=== PATIENT | female | born 1970 | race Hispanic/Latino ===

== ENCOUNTER 2018-07-19 16:26 | Inpatient (IN) | payer SELFPAY ==
[~2018-07-19] VITALS: Ht 165.1 cm; Wt 96.8 kg
[2018-07-19 17:32] LABS: BASOPHILS % (AUTO) 1.4 % (0.0-5.0); EOSINOPHILS % (AUTO) 0.3 % (0.0-8.0); LYMPHOCYTES % (AUTO) 10.2 % (21.0-51.0); MEAN CORPUSCULAR HEMOGLOBIN 29.8 pg (27.0-33.0); MEAN CORPUSCULAR HGB CONC 33.4 g/dL (32.0-36.0); MEAN CORPUSCULAR VOLUME 89.1 fL (79-99); MONOCYTES % (AUTO) 6.6 % (3.0-13.0); NEUTROPHILS % (AUTO) 81.5 % (40.0-77.0); PLATELET COUNT (AUTO) 362 K/uL (130-400); RED CELL DISTRIBUTION WIDTH 12.6 % (11.0-15.5); WHITE BLOOD COUNT (AUTO) 22.4 K/uL (4.8-10.8)
[2018-07-19] MEDS ORDERED: MORPHINE SULFATE 4 MG/1ML SYG ONE (17:39)
[2018-07-19] MEDS ORDERED: ONDANSETRON HCL 4 MG/2 ML VIAL ONE (17:39)
[2018-07-19 17:41] LABS: INR 0.93 (0.85-1.15); PARTIAL THROMBOPLASTIN TIME 33.4 SEC (26.3-35.5); PROTHROMBIN TIME 9.8 SEC (9.6-11.6)
[2018-07-19] MEDS ORDERED: INSULIN HUMULIN R 100 UNIT/ML 3ML ONE (18:04)
[2018-07-19 18:11] LABS: CARBON DIOXIDE 26 mmol/L (21-32); CHLORIDE 97 mmol/L (101-111); CREATININE 0.7 mg/dL (0.5-1.5); GLOMERULAR FILTR. RATE CALC 95 mL/min (>60); GLUCOSE,RANDOM 399 mg/dL (70-105); POTASSIUM 4.3 mmol/L (3.5-5.1); SODIUM SERUM 132 mmol/L (136-145); UREA NITROGEN, BLOOD 10 mg/dL (7-18)
[2018-07-19 18:19] LABS: ALANINE AMINOTRANSFERASE 14 U/L (12-78); ALBUMIN 2.3 g/dL (3.5-5.0); ASPARTATE AMINOTRANSFERASE 22 U/L (10-37); BILIRUBIN,TOTAL 0.4 mg/dL (0.2-1.0); CREATINE KINASE, TOTAL 66 U/L (21-232); MYOGLOBIN 24 ng/mL (10-92); TOTAL PROTEIN, SERUM 7.5 g/dL (6.0-8.3); TROPONIN I < 0.04 ng/mL (0.00-0.06)
[2018-07-19] MEDS ORDERED: ONDANSETRON HCL 4 MG/2 ML VIAL IV PRN (18:45)
[2018-07-19] MEDS ORDERED: ZOSYN 3.375GM+NS 50ML 50 ML IV ONE (18:46)
[2018-07-19] MEDS ORDERED: LIDOCAINE HCL 1% 20 ML VIAL ONE (18:59)
[2018-07-19] MEDS ORDERED: VANCOMYCIN PROTOCOL PER PHARMACY IV PRN (19:00)
[2018-07-19] MEDS ORDERED: DEXTROSE 50%-WATER 50 ML DISP.SYRIN IV PRN (19:00)
[2018-07-19] MEDS ORDERED: GLUCAGON 1MG KIT 1 MG ML IM PRN (19:00)
[2018-07-19] MEDS ORDERED: HYDRALAZINE HCL 20 MG/ML VIAL IV PRN (20:15)
[2018-07-19] MEDS ORDERED: VANCOMYCIN 1GM+NS 250ML 250 ML IV ONE (20:22)
[2018-07-19] MEDS: VANCOMYCIN 1GM+NS 250ML 250 ML IV SCH (21:00)
[2018-07-19] MEDS: INSULIN HUMULIN R 100 UNIT/ML 3ML SQ SCH (21:00)
[2018-07-19] MEDS ORDERED: ACETAMINOPHEN EXTRA STRENGTH 500 MG TABLET ONE (21:28)
[2018-07-19 21:50] VITALS: BP 150/71
--- NOTE | 2018-07-19 22:00 | NUR ---
ADMIT PT ADMITTED TO ROOM 328,AAOX3. NO COMPLAINTS OF PAINS AT THIS TIME. DRESSING TO RT UPPER BACK DRY AND INTACT. V/S MONITORED BY PCP, TEMPERATURE AND HR ELEVATED AT 100.4 AND 114 BPM. PT ALREADY MEDICATED WITH TYLENOL IN ER. KEPT ROOM TEMPERATURE COOL. PROVIDED THIN BLANKET TO USE AT THIS TIME. ADMISSION CARE DONE. ADMISSION DATA BASE COMPLETED. STARTED PT ON IVF OF NS REGULATED AT 100CC/HR VIA PIV G20 TO RAC. STARTED ON PEPCID PO, TOLERATED WELL. ORIENTED TO ROOM AND UNIT. CALL LIGHT WITHIN REACH. IN FOR MORE CARE AND MANAGEMENT. Addendum: 07/19/18 at 2301 by OBDULIO LYNN RN RN Amended: Links added.
[2018-07-19] MEDS: FAMOTIDINE 20MG TAB 20 MG TAB PO SCH (22:05)
[2018-07-19] MEDS: SODIUM CHLORIDE 0.9% 1000ML 1,000 ML IV SCH (22:05)
[2018-07-19] MEDS ORDERED: METF-444 PO (22:15)
[2018-07-19 22:41] LABS: APPEARANCE,URINE Clear (CLEAR); BILIRUBIN,URINE Negative (NEGATIVE); COLOR,URINE Yellow (YELLOW); GLUCOSE, URINE (UA) >=1000 mg/dL (NEGATIVE); KETONES,URINE >=80 mg/dL (NEGATIVE); LEUKOCYTE ESTERASE ,URINE Negative (NEGATIVE); NITRATE,URINE Negative (NEGATIVE); OCCULT BLOOD,URINE Small (NEGATIVE); PH,URINE 5.5 (5.0-8.0); PROTEIN,URINE POS 2+ mg/dL (NEGATIVE)
[2018-07-19 22:55] LABS: BACTERIA,URINE Rare /HPF (None Seen); SQUAMOUS EPITHELIAL CELL,UR Rare /HPF (0-2); YEAST,URINE BUDDING None Seen /HPF (None Seen)
[2018-07-19 23:30] VITALS: BP 126/76
[2018-07-20] MEDS: ACETAMINOPHEN-CODEINE 300/30MG TAB PO PRN ×3 (01:35→20:39)
--- NOTE | 2018-07-20 02:00 | NUR ---
ROUNDS PT RESTING WELL, FAIRLY ASLEEP WITH RESPIRATIONS EVEN AND UNLABORED. NO NOTED DISTRESS. KEPT UNDISTURBED FOR NOW. WILL CONTINUE TO MONITOR. CALL LIGHT WITHIN REACH.
[2018-07-20] MEDS: ZOSYN 3.375GM+NS 50ML 50 ML IV SCH ×3 (03:04→18:12)
[2018-07-20 04:00] VITALS: BP 129/71
[2018-07-20] MEDS: SODIUM CHLORIDE 0.9% 1000ML 1,000 ML IV SCH ×2 (04:03→14:57)
[2018-07-20] MEDS: VANCOMYCIN 1GM+NS 250ML 250 ML IV SCH ×2 (04:40→13:30)
--- NOTE | 2018-07-20 04:40 | NUR ---
MEDS AWAKENED PT FOR DUE MEDS. INSERTED SECOND PIV FOR IV ABX, G20 RFA, PT TOLERATED INSERTION WELL. IV ANTIBIOTICS INFUSED. KEPT RESTED AND COMFORTABLE. CALL LIGHT WITHIN REACH. FOR MORE CARE.
[2018-07-20 05:10] LABS: HEMATOCRIT 42.3 % (36-48); MEAN CORPUSCULAR HEMOGLOBIN 30.8 pg (27.0-33.0); MEAN CORPUSCULAR HGB CONC 34.7 g/dL (32.0-36.0); MEAN CORPUSCULAR VOLUME 88.8 fL (79-99); PLATELET COUNT (AUTO) 336 K/uL (130-400); RED BLOOD CELL COUNT(AUTO) 4.76 MIL/uL (4.00-5.50); RED CELL DISTRIBUTION WIDTH 12.7 % (11.0-15.5); WHITE BLOOD COUNT (AUTO) 26.1 K/uL (4.8-10.8)
[2018-07-20 05:17] LABS: CREATININE 0.5 mg/dL (0.5-1.5); POTASSIUM 3.4 mmol/L (3.5-5.1)
[2018-07-20] MEDS: INSULIN HUMULIN R 100 UNIT/ML 3ML SQ SCH ×4 (06:30→20:35)
[2018-07-20 08:00] VITALS: BP 144/67
[2018-07-20] MEDS: FAMOTIDINE 20MG TAB 20 MG TAB PO SCH ×2 (08:57→20:28)
[2018-07-20] MEDS: ENOXAPARIN SODIUM 30 MG/0.3 ML SQ SCH (08:58)
--- NOTE | 2018-07-20 11:27 | NUR ---
RD Notification Patient partially awake upon visit. Patient reports was able to eat breakfast this AM. Patient with nausea and pain at time of visit. RD with pending diet education. Patient LBM 07/19/18. Patient monitored labs: Na 132, K 3.4, Cl 99, BUN 6, CO2 20, Glu 252, Alb 2.3. RD to continue to monitor. Please notify RD as nutritional concerns arise. Thank you. Addendum: 07/20/18 at [address] RD Amended: Links added.
[2018-07-20 12:00] VITALS: BP 136/79
--- NOTE | 2018-07-20 14:00 | NUR ---
DR. CONWAY HERE TO SEE PATIENT. COLLECTED RIGHT UPPER POSTERIOR WOUND CULTURE AND SENT TO LAB. CLEANED WOUND WITH NORMAL SALINE PENDING PEROXIDE TO ARRIVE . NOTICED LARGE AMOUNT PRULUENT DISCHARGE. COVERED WITH 4X4 AND SECURED WITH TAPE.
[2018-07-20 16:00] VITALS: BP 157/74
--- NOTE | 2018-07-20 16:11 | NUR ---
DCP CM met with pt discussed dc plans. Pt is independent prior to admission, lives at home with spouse. Denies any equipments/services. Pt is a selfpay currently does not see a pcp, given [facility], [facility] assisting. DC plan to home once stable. CM to cont to follow up. Addendum: 07/20/18 at 1613 by YAMILET CONTRERAS LVN CM Amended: Links added.
[2018-07-20 19:30] VITALS: BP 144/67
[2018-07-20] MEDS: METOPROLOL TARTRATE 25 MG TAB PO SCH (20:28)
--- NOTE | 2018-07-20 20:30 | NUR ---
MEDS DUE MEDS ADMINISTERED AND TYLENOL #3 GIVEN FOR PAIN. TOLERATED WELL. DRESSING CHANGE DONE. REMOVED DRESSING AND PACKING. TRIED TO SQUEEZE OUT PUS FROM WOUND. FLUSHED WOUND WITH PEROXIDE. RE-PACKED WITH NU-GAUZE, COVERED WITH 4X4 AND ABD PAD THEN SECURED WITH TAPE. CHANGED WET GOWN AND LINEN. POSITIONED COMFORTABLY IN BED. CALL LIGHT WITHIN REACH. WILL RE-ASSESS PT.
[2018-07-20] MEDS ORDERED: INSULIN GLARGINE 100 UNITS/ML 10 ML VIAL SQ SCH (21:00)
--- NOTE | 2018-07-20 21:00 | NUR ---
[facility] FAXED [facility] THROUGH RESULTS TO RX. CALLED PHARMACIST AND STATED WILL DO RE-DOSING TONIGHT.
[2018-07-20] MEDS ORDERED: VANCOMYCIN 2 GM in SODIUM CHLORIDE 0.9% 500ML 500 ML IV ONE (22:00)
[2018-07-20 23:30] VITALS: BP 129/62
[2018-07-21] MEDS: SODIUM CHLORIDE 0.9% 1000ML 1,000 ML IV SCH ×3 (00:04→20:57)
--- NOTE | 2018-07-21 02:00 | NUR ---
ROUNDS PT FAIRLY ASLEEP WITH RESPIRATIONS EVEN AND UNLABORED. NO DISTRESS NOTED. IV ANTIBIOTICS INFUSED. KEPT RESTED. CALL LIGHT WITHIN REACH. WILL MONITOR PT.
[2018-07-21] MEDS: ZOSYN 3.375GM+NS 50ML 50 ML IV SCH ×3 (02:15→18:12)
[2018-07-21 03:30] VITALS: BP 136/65
[2018-07-21] MEDS: VANCOMYCIN 1GM+NS 250ML 250 ML IV SCH ×2 (04:25→12:06)
[2018-07-21] MEDS: ACETAMINOPHEN-CODEINE 300/30MG TAB PO PRN ×3 (04:31→23:25)
--- NOTE | 2018-07-21 04:31 | NUR ---
PAIN PT CLAIMS OF FEELING FEVERISH. RE-CHECKED TEMPERATURE=99.1. PT CLAIMS OF PAINS ON THE RT UPPER BACK AREA. MEDICATED WITH TYLENOL #3. KEPT COMFORTABLE IN BED. WILL RE-ASSESS PT.
[2018-07-21 04:35] LABS: HEMATOCRIT 40.9 % (36-48); MEAN CORPUSCULAR HEMOGLOBIN 30.2 pg (27.0-33.0); MEAN CORPUSCULAR HGB CONC 33.9 g/dL (32.0-36.0); MEAN CORPUSCULAR VOLUME 89.1 fL (79-99); NUCLEATED RED BLOOD CELLS 0.1 % (0.0-0.19); PLATELET COUNT (AUTO) 398 K/uL (130-400); RED BLOOD CELL COUNT(AUTO) 4.59 MIL/uL (4.00-5.50); RED CELL DISTRIBUTION WIDTH 12.5 % (11.0-15.5); WHITE BLOOD COUNT (AUTO) 25.3 K/uL (4.8-10.8)
[2018-07-21 04:41] LABS: CREATININE 0.5 mg/dL (0.5-1.5); POTASSIUM 3.2 mmol/L (3.5-5.1)
[2018-07-21] MEDS: INSULIN HUMULIN R 100 UNIT/ML 3ML SQ SCH ×4 (06:30→20:44)
[2018-07-21 08:00] VITALS: BP 128/72
--- NOTE | 2018-07-21 08:00 | NUR ---
RIGHT UPPER SCAPULA WOUND CLEANED WITH NORMAL. FLUSHED WITH PEROXIDE AND PACKED WITH NUGAUZE, APPLIED 4X4 AND ABD PAD AND SECURED WITH MEDIOPORE TAPE. LARGE AMOUNT OF PURULENT DRAINAGE NOTED. PATIENT TOLERATED PROCEDURE WELL.
[2018-07-21] MEDS: POTASSIUM CHLORIDE 20 MEQ ERTAB PO SCH (08:41)
[2018-07-21] MEDS: ENOXAPARIN SODIUM 30 MG/0.3 ML SQ SCH (08:41)
[2018-07-21] MEDS: FAMOTIDINE 20MG TAB 20 MG TAB PO SCH ×2 (08:41→20:41)
[2018-07-21] MEDS: METOPROLOL TARTRATE 25 MG TAB PO SCH ×2 (08:41→20:41)
[2018-07-21 12:01] VITALS: BP 120/65
[2018-07-21 16:00] VITALS: BP 150/77
[2018-07-21] MEDS ORDERED: LIDOCAINE HCL-MPF 1% 2ML VIAL IVP PRN (16:45)
[2018-07-21] MEDS ORDERED: POTASSIUM CHLORIDE 10% ELIXIR 20 MEQ/15 ML UDCUP PO PRN (16:45)
[2018-07-21] MEDS ORDERED: POTASSIUM CHLORIDE 20MEQ/100ML 100 ML IV PRN (16:45)
[2018-07-21] MEDS: POTASSIUM CHLORIDE 20 MEQ ERTAB PO PRN ×2 (18:41→22:19)
--- NOTE | 2018-07-21 20:00 | NUR ---
WALK PT WALKING AROUND THE FLOOR AT THIS TIME. NO DISTRESS NOTED.
[2018-07-21 20:26] VITALS: BP 132/70
--- NOTE | 2018-07-21 20:36 | NUR ---
MEDS VANCO THROUGH RESULTS IN, FAXED TO RX AND CALLED PHARMACIST TO INFORM OF LEVEL. PHARMACIST STATED WILL LOOK INTO RESULTS AND DO DOSING OF MED. DUE MEDS ADMINISTERED, TOLERATED WELL. KEPT RESTED AND COMFORTABLE IN BED. CALL LIGHT WITHIN REACH.
[2018-07-21] MEDS: INSULIN GLARGINE 100 UNITS/ML 10 ML VIAL SQ SCH (20:43)
[2018-07-21] MEDS ORDERED: COMPOUND IV REFRIGERATED 1 EACH IVSOLN MISC PRN (22:15)
[2018-07-21] MEDS: VANCOMYCIN 1.5 GM in SODIUM CHLORIDE 0.9% 250 ML IV SCH (22:19)
--- NOTE | 2018-07-21 23:00 | NUR ---
WOUND PT REQUESTED TO SHOWER, TOLERATED ACTIVITY WELL. PT'S FAMILY AT BEDSIDE AND ATTENDED TO PT'S NEEDS AT THIS TIME. PT'S WOUND DRESSING DONE AFTER PT'S SHOWER. PICTURE OF WOUND TAKE, PLACED IN CHART. REMOVED PACKING AND SQUEEZED OUT PUS FROM SX WOUND. FLUSHED WOUND WITH HYDROGEN PYROXIDE. PACKING OD NU-GAUZE DONE THEN COVERED WITH 4X4 AND ABD PAD THEN SECURED WITH TAPE. PT REQUESTED FOR PAIN MED AFTER DRESSING. MEDICATED WITH TYLENOL #3 PO. KEPT COMFORTABLE IN BED. WILL RE-ASSESS PT.
[2018-07-21 23:51] VITALS: BP 141/72
[2018-07-22] MEDS: POTASSIUM CHLORIDE 20 MEQ ERTAB PO PRN (01:30)
--- NOTE | 2018-07-22 01:30 | NUR ---
MEDS AWAKENED PT FOR POTASSIUM PO DOSE. PT TOLERATED MEDS WELL. KEPT COMFORTABLE. ENCOURAGED TO GO BACK TO SLEEP. CALL LIGHT WITHIN REACH. WILL MONITOR PT.
[2018-07-22] MEDS: ZOSYN 3.375GM+NS 50ML 50 ML IV SCH ×3 (02:29→21:53)
[2018-07-22 04:15] VITALS: BP 133/71
--- NOTE | 2018-07-22 05:10 | NUR ---
PIV AWAKENED PT FOR DUE MEDS. SECOND PIV INSERTED, G20 TO LFA. PT TOLERATED INSERTION WELL. DUE MEDS ADMINISTERED. KEPT COMFORTABLE. FOR MORE CARE. Addendum: 07/22/18 at 0622 by OBDUILO LYNN RN RN Amended: Links added.
[2018-07-22] MEDS: VANCOMYCIN 1.5 GM in SODIUM CHLORIDE 0.9% 250 ML IV SCH ×3 (05:12→21:54)
[2018-07-22] MEDS: SODIUM CHLORIDE 0.9% 1000ML 1,000 ML IV SCH ×2 (05:15→21:57)
[2018-07-22] MEDS: INSULIN HUMULIN R 100 UNIT/ML 3ML SQ SCH ×4 (05:40→21:59)
[2018-07-22 07:14] LABS: POTASSIUM 3.6 mmol/L (3.5-5.1)
[2018-07-22 07:30] VITALS: BP 132/69
[2018-07-22 09:43] LABS: BASOPHILS % (AUTO) 0.9 % (0.0-5.0); HEMATOCRIT 37.8 % (36-48); LYMPHOCYTES % (AUTO) 18.8 % (21.0-51.0); MEAN CORPUSCULAR HEMOGLOBIN 30.4 pg (27.0-33.0); MEAN CORPUSCULAR HGB CONC 33.9 g/dL (32.0-36.0); MEAN CORPUSCULAR VOLUME 89.9 fL (79-99); MONOCYTES % (AUTO) 7.4 % (3.0-13.0); NEUTROPHILS % (AUTO) 70.9 % (40.0-77.0); NUCLEATED RED BLOOD CELLS 0.1 % (0.0-0.19); PLATELET COUNT (AUTO) 380 K/uL (130-400); RED BLOOD CELL COUNT(AUTO) 4.21 MIL/uL (4.00-5.50); RED CELL DISTRIBUTION WIDTH 12.7 % (11.0-15.5); WHITE BLOOD COUNT (AUTO) 16.4 K/uL (4.8-10.8)
[2018-07-22 10:04] LABS: CREATININE 0.6 mg/dL (0.5-1.5)
[2018-07-22] MEDS: POTASSIUM CHLORIDE 20 MEQ ERTAB PO SCH (10:35)
[2018-07-22] MEDS: METOPROLOL TARTRATE 25 MG TAB PO SCH ×2 (10:35→21:51)
[2018-07-22] MEDS: FAMOTIDINE 20MG TAB 20 MG TAB PO SCH ×2 (10:36→21:51)
[2018-07-22] MEDS: ENOXAPARIN SODIUM 30 MG/0.3 ML SQ SCH (10:39)
[2018-07-22] MEDS: ACETAMINOPHEN 325 MG TAB PO PRN ×2 (10:49→16:58)
[2018-07-22 11:00] VITALS: BP 107/69
[2018-07-22 16:00] VITALS: BP 120/58
[2018-07-22 19:30] VITALS: BP 132/68
[2018-07-22] MEDS: INSULIN GLARGINE 100 UNITS/ML 10 ML VIAL SQ SCH (22:00)
[2018-07-22] MEDS: KETOROLAC TROMETHAMINE 15MG/ML IV PRN (22:08)
[2018-07-23] VITALS (26 sets, daily range): BP systolic 109–140; BP diastolic 48–74
[2018-07-23] MEDS: VANCOMYCIN 1.5 GM in SODIUM CHLORIDE 0.9% 250 ML IV SCH ×3 (05:21→20:55)
[2018-07-23] MEDS: ZOSYN 3.375GM+NS 50ML 50 ML IV SCH ×3 (05:22→18:34)
[2018-07-23] MEDS: SODIUM CHLORIDE 0.9% 1000ML 1,000 ML IV SCH ×2 (05:27→20:56)
[2018-07-23 06:12] LABS: BASOPHILS % (AUTO) 0.7 % (0.0-5.0); EOSINOPHILS % (AUTO) 2.8 % (0.0-8.0); HEMATOCRIT 36.4 % (36-48); MEAN CORPUSCULAR HEMOGLOBIN 30.2 pg (27.0-33.0); MEAN CORPUSCULAR HGB CONC 33.9 g/dL (32.0-36.0); MEAN CORPUSCULAR VOLUME 89.2 fL (79-99); MONOCYTES % (AUTO) 9.3 % (3.0-13.0); NEUTROPHILS % (AUTO) 58.2 % (40.0-77.0); PLATELET COUNT (AUTO) 477 K/uL (130-400); RED BLOOD CELL COUNT(AUTO) 4.08 MIL/uL (4.00-5.50); RED CELL DISTRIBUTION WIDTH 12.6 % (11.0-15.5); WHITE BLOOD COUNT (AUTO) 12.3 K/uL (4.8-10.8)
[2018-07-23 06:28] LABS: CREATININE 0.5 mg/dL (0.5-1.5); POTASSIUM 3.7 mmol/L (3.5-5.1)
[2018-07-23] MEDS: KETOROLAC TROMETHAMINE 15MG/ML IV PRN (06:36)
[2018-07-23] MEDS: INSULIN HUMULIN R 100 UNIT/ML 3ML SQ SCH ×4 (07:30→21:00)
[2018-07-23] MEDS: FAMOTIDINE 20MG TAB 20 MG TAB PO SCH ×2 (09:00→20:55)
[2018-07-23] MEDS: POTASSIUM CHLORIDE 20 MEQ ERTAB PO SCH (09:00)
[2018-07-23] MEDS: ENOXAPARIN SODIUM 30 MG/0.3 ML SQ SCH (09:00)
[2018-07-23] MEDS ORDERED: INSU3INS3 SQ (10:15)
[2018-07-23] MEDS ORDERED: GLYB2.5 PO (10:15)
[2018-07-23] MEDS ORDERED: TRAM50TA4 PO (10:16)
[2018-07-23] MEDS: METOPROLOL TARTRATE 25 MG TAB PO SCH ×2 (10:41→20:55)
[2018-07-23] MEDS ORDERED: PROPOFOL 10 MG/ML 20ML VIAL IV ONE (17:33)
[2018-07-23] MEDS ORDERED: FENTANYL CITRATE PF 50 MCG/1 ML 2ML VIAL ONE ×2 (17:33→17:50)
[2018-07-23] MEDS ORDERED: LIDOCAINE PF 2% 5ML ABBOJECT ONE (17:33)
[2018-07-23] MEDS ORDERED: PHENYLEPHRINE HCL 10 MG/ML 1ML VIAL IV ONE (17:46)
[2018-07-23] MEDS ORDERED: SODIUM CHLORIDE 0.9% 10 ML VIAL ONE (17:46)
[2018-07-23] MEDS ORDERED: ONDANSETRON HCL 4 MG/2 ML VIAL ONE (17:53)
[2018-07-23] MEDS ORDERED: KETOROLAC TROMETHAMINE 30MG/ML ONE (17:55)
[2018-07-23] MEDS: INSULIN GLARGINE 100 UNITS/ML 10 ML VIAL SQ SCH (20:57)
[2018-07-24 00:30] VITALS: BP 137/64
[2018-07-24] MEDS: ZOSYN 3.375GM+NS 50ML 50 ML IV SCH ×3 (03:02→19:34)
[2018-07-24 04:35] VITALS: BP 124/67
[2018-07-24] MEDS: SODIUM HYPOCHLORITE 0.25% [HALF STRENGTH] 473 ML TOPICAL SOLN TP SCH ×3 (05:07→16:35)
[2018-07-24] MEDS: VANCOMYCIN 1.5 GM in SODIUM CHLORIDE 0.9% 250 ML IV SCH ×3 (05:23→21:00)
--- NOTE | 2018-07-24 05:31 | NUR ---
PATIENT UPDATE S/P INCISION AND DRAINAGE OF PERSISTENT BACK ABSCESS LAST NIGHT FROM SURGERY, DRESSING TO THE RT SCAPULAR AREA DRY AND INTACT. BETADINE SOAKED KERLIX PACKING USED IN THE OPERATIVE SITE, DRESSING DRY AND INTACT. TO BE STARTED ON DAMP TO DRY DRESSING CHANGES TID USING THE 0.25% DAKINS SOLUTION FOR 48 HRS THEN DAMP TO DRY DRESSING CHANGE USING NORMAL SALINE. VITAL SIGNS STABLE POST OP, HASN'T REQUIRED ANY PAIN MEDS POST OP, SLEPT WELL OVERNIGHT.
[2018-07-24] MEDS: INSULIN HUMULIN R 100 UNIT/ML 3ML SQ SCH ×4 (06:22→21:43)
[2018-07-24 08:00] VITALS: BP 119/70
[2018-07-24 12:00] VITALS: BP 131/70
[2018-07-24] MEDS: METOPROLOL TARTRATE 25 MG TAB PO SCH ×2 (12:23→21:37)
[2018-07-24] MEDS: SODIUM CHLORIDE 0.9% 1000ML 1,000 ML IV SCH ×2 (12:23→18:57)
[2018-07-24] MEDS: POTASSIUM CHLORIDE 20 MEQ ERTAB PO SCH (12:23)
[2018-07-24] MEDS: ENOXAPARIN SODIUM 30 MG/0.3 ML SQ SCH (12:24)
[2018-07-24] MEDS: FAMOTIDINE 20MG TAB 20 MG TAB PO SCH ×2 (12:24→21:38)
[2018-07-24 16:00] VITALS: BP 141/71
[2018-07-24] MEDS: KETOROLAC TROMETHAMINE 15MG/ML IV PRN (18:30)
[2018-07-24 20:00] VITALS: BP 130/67
[2018-07-24] MEDS: INSULIN GLARGINE 100 UNITS/ML 10 ML VIAL SQ SCH (21:44)
[2018-07-25] VITALS (7 sets, daily range): BP systolic 128–164; BP diastolic 70–79
[2018-07-25] MEDS: ZOSYN 3.375GM+NS 50ML 50 ML IV SCH ×2 (03:09→11:03)
[2018-07-25] MEDS: SODIUM CHLORIDE 0.9% 1000ML 1,000 ML IV SCH ×3 (04:57→15:05)
[2018-07-25] MEDS: VANCOMYCIN 1.5 GM in SODIUM CHLORIDE 0.9% 250 ML IV SCH (05:00)
[2018-07-25] MEDS: KETOROLAC TROMETHAMINE 15MG/ML IV PRN (05:28)
[2018-07-25] MEDS: SODIUM HYPOCHLORITE 0.25% [HALF STRENGTH] 473 ML TOPICAL SOLN TP SCH ×3 (05:33→14:44)
[2018-07-25] MEDS: INSULIN HUMULIN R 100 UNIT/ML 3ML SQ SCH ×4 (06:49→21:15)
--- NOTE | 2018-07-25 08:45 | NUR ---
PATIENT UPDATE VANCO TROUGH LAST NIGHT AT 90.7, VANCO DOSE WAS PUT ON HOLD. PHARMACY PENDING TO ORDER ALTERNATIVE TO VANCO REGIMEN, WILL LET DR. CONWAY KNOW THIS AM. PT SLEPT BETTER LAST NIGHT, DAMP TO DRY DRESSING WITH DAKINS SOLUTION DONE THIS AM, PT PRE MEDICATED WITH TORADOL 15 MG SLOW IV PUSH PRIOR TO THE DRESSING CHANGE. STILL WITH MOD AMT OF PURULENT MATERIAL SEEPING OUT FROM THE WOUND, TOLERATED THE PROCEDURE WELL. ATTEMPTED TO TEACH ABOUT THE DRESSING CHANGE BUT VERY HESITANT TO EVEN WATCH ME WHILE I AM DOING THE PROCEDURE. PATIENT STATED THAT SHE WILL TRY TO TALK TO HER SISTER IN [place] WHO USED TO DO HER DRESSING CHANGES WITH THE PREVIOUS HX OF PERSISTENT ABSCESS WOUNDS IN THE BACK.
--- NOTE | 2018-07-25 09:00 | NUR ---
CLEANED RIGHT UPPER SCAPULA WITH NORMAL SALINE . APPLIED SOAKED KERLIX WITH DAKINS TO WOUND, COVERED WITH 4X4, ABD AND SECURED WITH MEDIPORE . PATIENT TOLERATED WELL. Addendum: 07/25/18 at 2 by MARCI BARTON LVN PATIENT FAMILY MEMBER BROTHER (ISH SO PRESENT AND WOUND CARE WAS TAUGHT .
[2018-07-25] MEDS: METOPROLOL TARTRATE 25 MG TAB PO SCH ×2 (09:57→21:14)
[2018-07-25] MEDS: ENOXAPARIN SODIUM 30 MG/0.3 ML SQ SCH (09:58)
[2018-07-25] MEDS: POTASSIUM CHLORIDE 20 MEQ ERTAB PO SCH (09:58)
[2018-07-25] MEDS: FAMOTIDINE 20MG TAB 20 MG TAB PO SCH ×2 (09:58→21:14)
[2018-07-25] MEDS: ACETAMINOPHEN 325 MG TAB PO PRN (10:04)
[2018-07-25] MEDS: CEPHALEXIN 500 MG CAPSULE PO SCH ×2 (11:57→19:03)
--- NOTE | 2018-07-25 12:51 | NUR ---
Nutrition Follow-up: Pt. S/P I&D of right upper back abscess(07/23/18). Pt. on 75gm CCD diet with good p.o. intake. Labs reviewed(Alb 2.3, HgbA1c 12.0%). LBM: 07/24/18. SR-20, right upper back incision. Pt. educated on Diabetic diet and provided with education material. Pt. verbalized understanding. Recommendations: 1) Continue current diet. 2) Rec. 30ml ProMod BID with B'fast and dinner meals. 3) Diabetic diet education given to patient. 4) Continue to monitor pt's nutritional status. 5) Consult RD as nutrition concerns arise. Addendum: 07/25/18 at [address] Amended: Links added.
--- NOTE | 2018-07-25 17:00 | NUR ---
CLEANED RIGHT UPPER SCAPULA WITH NORMAL SALINE . APPLIED SOAKED KERLIX WITH DAKINS TO WOUND, COVERED WITH 4X4, ABD AND SECURED WITH MEDIPORE . PATIENT TOLERATED WELL.. PATIENTS BROTHER HERE TO LEARN/AND TEACH WOUND CARE.
[2018-07-25] MEDS: INSULIN GLARGINE 100 UNITS/ML 10 ML VIAL SQ SCH (21:16)
[2018-07-26] MEDS: CEPHALEXIN 500 MG CAPSULE PO SCH ×3 (03:26→18:21)
[2018-07-26 05:05] VITALS: BP 141/72
[2018-07-26] MEDS: INSULIN HUMULIN R 100 UNIT/ML 3ML SQ SCH ×4 (05:33→20:45)
[2018-07-26 07:20] LABS: BASOPHILS % (AUTO) 0.7 % (0.0-5.0); EOSINOPHILS % (AUTO) 2.3 % (0.0-8.0); HEMATOCRIT 36.6 % (36-48); LYMPHOCYTES % (AUTO) 23.9 % (21.0-51.0); MEAN CORPUSCULAR HEMOGLOBIN 30.2 pg (27.0-33.0); MEAN CORPUSCULAR HGB CONC 33.6 g/dL (32.0-36.0); MEAN CORPUSCULAR VOLUME 89.8 fL (79-99); NEUTROPHILS % (AUTO) 62.1 % (40.0-77.0); PLATELET COUNT (AUTO) 460 K/uL (130-400); RED BLOOD CELL COUNT(AUTO) 4.08 MIL/uL (4.00-5.50); RED CELL DISTRIBUTION WIDTH 12.9 % (11.0-15.5); WHITE BLOOD COUNT (AUTO) 13.7 K/uL (4.8-10.8)
[2018-07-26 07:24] LABS: CREATININE 2.3 mg/dL (0.5-1.5); POTASSIUM 4.1 mmol/L (3.5-5.1)
[2018-07-26 08:00] VITALS: BP 158/75
--- NOTE | 2018-07-26 09:00 | NUR ---
CLEANED RIGHT UPPER SCAPULA WITH NORMAL SALINE . APPLIED SOAKED KERLIX WITH NORMAL SALINE TO WOUND, COVERED WITH 4X4, ABD AND SECURED WITH MEDIPORE . PATIENT TOLERATED WELL.. PATIENT SISTER 9 (SHREE RAMÍREZ )WAS TAUGHT ON WOUND DRESSING CHANGES
[2018-07-26] MEDS: FAMOTIDINE 20MG TAB 20 MG TAB PO SCH ×2 (09:53→20:49)
[2018-07-26] MEDS: ENOXAPARIN SODIUM 30 MG/0.3 ML SQ SCH (09:54)
[2018-07-26] MEDS: POTASSIUM CHLORIDE 20 MEQ ERTAB PO SCH (09:54)
[2018-07-26] MEDS: METOPROLOL TARTRATE 25 MG TAB PO SCH ×2 (09:54→20:49)
[2018-07-26 12:00] VITALS: BP 128/62
[2018-07-26 16:00] VITALS: BP 155/75
[2018-07-26] MEDS: METFORMIN HCL 850 MG TABLET PO SCH (18:21)
[2018-07-26 19:56] VITALS: BP 156/67
[2018-07-26] MEDS: INSULIN GLARGINE 100 UNITS/ML 10 ML VIAL SQ SCH (20:44)
[2018-07-27 00:33] VITALS: BP 127/62
[2018-07-27] MEDS: CEPHALEXIN 500 MG CAPSULE PO SCH ×2 (03:07→12:03)
[2018-07-27 04:04] VITALS: BP 123/52
[2018-07-27] MEDS: INSULIN HUMULIN R 100 UNIT/ML 3ML SQ SCH ×2 (06:05→11:30)
[2018-07-27 06:07] LABS: HEMATOCRIT 32.6 % (36-48); MEAN CORPUSCULAR HEMOGLOBIN 29.9 pg (27.0-33.0); MEAN CORPUSCULAR HGB CONC 33.5 g/dL (32.0-36.0); MEAN CORPUSCULAR VOLUME 89.3 fL (79-99); PLATELET COUNT (AUTO) 486 K/uL (130-400); RED BLOOD CELL COUNT(AUTO) 3.65 MIL/uL (4.00-5.50); RED CELL DISTRIBUTION WIDTH 12.9 % (11.0-15.5); WHITE BLOOD COUNT (AUTO) 11.9 K/uL (4.8-10.8)
[2018-07-27 06:16] LABS: CREATININE 2.2 mg/dL (0.5-1.5); POTASSIUM 4.2 mmol/L (3.5-5.1)
[2018-07-27 07:00] VITALS: BP 111/49
[2018-07-27] MEDS: POTASSIUM CHLORIDE 20 MEQ ERTAB PO SCH (08:21)
[2018-07-27] MEDS: METFORMIN HCL 850 MG TABLET PO SCH (08:21)
[2018-07-27] MEDS: METOPROLOL TARTRATE 25 MG TAB PO SCH (08:22)
[2018-07-27] MEDS: FAMOTIDINE 20MG TAB 20 MG TAB PO SCH (08:22)
[2018-07-27] MEDS: ENOXAPARIN SODIUM 30 MG/0.3 ML SQ SCH (08:23)
--- NOTE | 2018-07-27 09:00 | NUR ---
CLEANED RIGHT UPPER SCAPULA WOUND WITH NORMAL SALINE. APPLIED SOAKED KERLIX WITH NORMAL SALINE WET TO DRY, COVERED WITH 4X4, ABD AND SECURED WITH MEDIPORE TAPE. PATIENT TOLERATED PROCEDURE WELL. INSTRUCTED BROTHER ON HOW TO DO DRESSING CHANGES. ALL QUESTIONS ANSWERED.
[2018-07-27 11:00] VITALS: BP 135/74
[2018-07-27] MEDS ORDERED: CEPH500B PO (11:04)
--- NOTE | 2018-07-27 15:00 | NUR ---
CLEANED RIGHT UPPER SCAPULA WOUND WITH NORMAL SALINE. APPLIED SOAKED KERLIX WITH NORMAL SALINE WET TO DRY, COVERED WITH 4X4, ABD AND SECURED WITH MEDIPORE TAPE. PATIENT TOLERATED PROCEDURE WELL. INSTRUCTED BROTHER ON HOW TO DO DRESSING CHANGES. ALL QUESTIONS ANSWERED. DISCHARGE INSTRUCTIONS GIVEN. PATIENT TO FOLLOW UP WITH DR. GARCIA. PRIMARY CARE PHYSCIAN. / ZORAIDA.
== END 2018-07-27 16:20 | disposition home or self-care (01) | DRG 853 ==
LOC: EDH 16:26 → EDHIP 16:27 → 3DH 20:26
PROVIDERS: ADMIT Family Medicine; ATTEND Family Medicine
PROC: 0R9J0ZZ Drainage of Right Shoulder Joint, Open Approach (ICD-10-PCS; principal; 2018-07-19)
PROC: 0KBG0ZZ Excision of Left Trunk Muscle, Open Approach (ICD-10-PCS; 2018-07-23)
DX: A41.9 Sepsis, unspecified organism (principal); E43 Unspecified severe protein-calorie malnutrition; L02.413 Cutaneous abscess of right upper limb; L03.113 Cellulitis of right upper limb; L02.212 Cutaneous abscess of back [any part, except buttock and flank]; E11.9 Type 2 diabetes mellitus without complications; I10 Essential (primary) hypertension; F17.210 Nicotine dependence, cigarettes, uncomplicated; B95.61 Methicillin susceptible Staphylococcus aureus infection as the cause of diseases classified elsewhere; E66.9 Obesity, unspecified; Z68.35 Body mass index [BMI] 35.0-35.9, adult; Z82.49 Family history of ischemic heart disease and other diseases of the circulatory system; Z90.710 Acquired absence of both cervix and uterus; Z91.14 Patient's other noncompliance with medication regimen
CPT/HCPCS: 36415; 71045; 80048; 80053; 80202; 81001; 81025; 82550; 82948; 83036; 83605; 83874; 84484; 84703; 85025; 85027; 85610; 85730; 87040; 87070; 87076; 87077; 87088; 87186; 87205; 87804; 93005; A6266; G0378; J1650; J1815; J1885; J2001; J2270; J2370; J2405; J2543; J2704; J3010; J3370; J7030; J7040

== ENCOUNTER 2020-11-01 20:34 | Inpatient (IN) | payer SELFPAY ==
[~2020-11-01] VITALS: Ht 165.1 cm; Wt 94.7 kg
[~2020-11-01 20:34] MED LIST: CEPH500B PO; GLYB2.5T6 PO; INSU3INS3 SQ; METF-444 PO; TRAM50TA4 PO
[2020-11-01 21:15] VITALS: BP 134/58
[2020-11-01 21:27] LABS: BASOPHILS % (AUTO) 0.3 % (0.0-5.0); EOSINOPHILS % (AUTO) 0.6 % (0.0-8.0); HEMATOCRIT 33.6 % (36-48); LYMPHOCYTES % (AUTO) 12.3 % (21.0-51.0); MEAN CORPUSCULAR HEMOGLOBIN 30.1 pg (27.0-33.0); MEAN CORPUSCULAR HGB CONC 34.8 g/dL (32.0-36.0); MEAN CORPUSCULAR VOLUME 86.4 fL (79-99); MONOCYTES % (AUTO) 7.2 % (3.0-13.0); NEUTROPHILS % (AUTO) 78.7 % (40.0-77.0); PLATELET COUNT (AUTO) 423 K/uL (130-400); RED BLOOD CELL COUNT(AUTO) 3.89 MIL/uL (4.00-5.50); RED CELL DISTRIBUTION WIDTH 12.1 % (11.0-15.5); WHITE BLOOD COUNT (AUTO) 25.2 K/uL (4.8-10.8)
[2020-11-01] MEDS ORDERED: PIP/TAZ ZOSYN 3.375G 3.375 GM VIAL IVPB SCH (21:30)
[2020-11-01] MEDS ORDERED: VANCOMYCIN 1G VIAL IVPB ONE (21:30)
[2020-11-01 21:35] LABS: CREATININE 1.4 mg/dL (0.5-1.5); POTASSIUM 3.3 mmol/L (3.5-5.1)
[2020-11-01 21:40] LABS: ALBUMIN 2.1 g/dL (3.5-5.0); BILIRUBIN,TOTAL 0.2 mg/dL (0.2-1.0); TOTAL PROTEIN, SERUM 7.6 g/dL (6.0-8.3)
[2020-11-01] MEDS ORDERED: 0.9%NACL 1000ML 1,000 ML IV SCH (22:00)
[2020-11-01] MEDS ORDERED: POTASSIUM CHLORIDE 20MEQ/100ML 100 ML IV PRN (22:00)
[2020-11-01] MEDS ORDERED: LIDOCAINE HCL-MPF 1% 2ML VIAL IV PRN (22:00)
[2020-11-01] MEDS ORDERED: VANCOMYCIN PROTOCOL PER PHARMACY IV PRN (22:00)
[2020-11-01] MEDS ORDERED: ONDANSETRON 4MG INJ IV PRN (22:00)
[2020-11-01] MEDS ORDERED: ACETAMINOPHEN 325 MG TAB PO PRN (22:00)
[2020-11-01 22:21] VITALS: BP 127/58
[2020-11-01] MEDS ORDERED: VANCOMYCIN 1G/250ML KIT 250 ML IV ONE (22:24)
[2020-11-01] MEDS ORDERED: ZOSYN 3.375GM+NS 50ML 50 ML IV ONE (22:53)
[2020-11-01] MEDS ORDERED: LACTATED RINGERS 1000ML 1,710 ML IV ONE (23:00)
[2020-11-02] VITALS (29 sets, daily range): BP systolic 119–159; BP diastolic 50–78
[2020-11-02] MEDS: LACTATED RINGERS 1000ML 1,000 ML IV SCH ×4 (01:43→17:21)
[2020-11-02] MEDS: ZOSYN 3.375GM+NS 50ML 50 ML IV SCH ×3 (05:23→21:09)
[2020-11-02 05:36] LABS: BASOPHILS % (AUTO) 0.3 % (0.0-5.0); EOSINOPHILS % (AUTO) 0.5 % (0.0-8.0); HEMATOCRIT 34.4 % (36-48); MEAN CORPUSCULAR HEMOGLOBIN 29.6 pg (27.0-33.0); MEAN CORPUSCULAR VOLUME 87.1 fL (79-99); MONOCYTES % (AUTO) 6.3 % (3.0-13.0); NEUTROPHILS % (AUTO) 77.7 % (40.0-77.0); PLATELET COUNT (AUTO) 421 K/uL (130-400); RED BLOOD CELL COUNT(AUTO) 3.95 MIL/uL (4.00-5.50); RED CELL DISTRIBUTION WIDTH 12.1 % (11.0-15.5); WHITE BLOOD COUNT (AUTO) 25.4 K/uL (4.8-10.8)
[2020-11-02 05:48] LABS: INR 1.03 (0.85-1.15); PROTHROMBIN TIME 11.2 SEC (9.6-11.6)
[2020-11-02 05:49] LABS: BILIRUBIN,URINE Negative (NEGATIVE); COLOR,URINE Yellow (YELLOW); GLUCOSE, URINE (UA) 500 mg/dL (NEGATIVE); KETONES,URINE Negative (NEGATIVE); LEUKOCYTE ESTERASE ,URINE Moderate (NEGATIVE); NITRATE,URINE Negative (NEGATIVE); OCCULT BLOOD,URINE Moderate (NEGATIVE); PH,URINE 5.5 (5.0-8.0); PROTEIN,URINE POS 2+ mg/dL (NEGATIVE); UROBILINOGEN,URINE 0.2 mg/dL (0.2-1.0)
[2020-11-02 05:50] LABS: MAGNESIUM 1.4 mg/dL (1.80-2.40); PARTIAL THROMBOPLASTIN TIME 30.6 SEC (26.3-35.5); PHOSPHORUS 3.2 mg/dL (2.5-4.9); POTASSIUM 3.5 mmol/L (3.5-5.1)
[2020-11-02 05:52] LABS: APPEARANCE,URINE SLIGHTLY CLOUDY (CLEAR)
[2020-11-02 05:55] LABS: BACTERIA,URINE Few /HPF (None Seen)
[2020-11-02 05:56] LABS: SQUAMOUS EPITHELIAL CELL,UR 0-2 /HPF (0-2)
[2020-11-02 06:43] LABS: HEMOGLOBIN A1C 13.3 % (4.0-6.0)
[2020-11-02] MEDS: FAMOTIDINE 20MG VIAL IV SCH ×2 (08:39→08:40)
[2020-11-02] MEDS ORDERED: VANCOMYCIN PROTOCOL PER PHARMACY IV SCH (10:30)
[2020-11-02] MEDS ORDERED: COMPOUND IV REFRIGERATED 1 EACH IVSOLN MISC PRN (11:00)
[2020-11-02] MEDS ORDERED: VANCOMYCIN 1.25GM/NS 250ML IVPB SCH ×2 (11:00)
[2020-11-02] MEDS ORDERED: SUCCINYLCHOLINE 200MG/10ML SYR ONE (14:49)
[2020-11-02] MEDS ORDERED: LIDOCAINE PF 100MG/5ML (2%) SYRINGE 5ML ONE (14:49)
[2020-11-02] MEDS ORDERED: FENTANYL CITRATE PF 50 MCG/1 ML 5ML AMP IV ONE ×2 (14:50→15:30)
[2020-11-02] MEDS ORDERED: ONDANSETRON 4MG INJ ONE (14:50)
[2020-11-02] MEDS ORDERED: PROPOFOL 10 MG/ML 20ML VIAL IV ONE (14:50)
[2020-11-02] MEDS ORDERED: ROCURONIUM 10MG/1ML SYR 10 MG/ML ML ONE (14:51)
[2020-11-02] MEDS ORDERED: CEFAZOLIN SODIUM 1 GM VIAL ONE (15:02)
[2020-11-02] MEDS: 0.9% NACL 250ML 250 ML IV SCH (21:10)
[2020-11-02] MEDS: VANCOMYCIN KIT 1 GM/250 ML IV.KIT IV SCH (21:10)
[2020-11-02] MEDS: INSULIN HUMULIN R 100 UNIT/ML 3ML ONE ×2 (22:11→22:13)
[2020-11-03 03:49] VITALS: BP 133/62
[2020-11-03] MEDS: LACTATED RINGERS 1000ML 1,000 ML IV SCH ×3 (04:04→23:01)
[2020-11-03] MEDS: ZOSYN 3.375GM+NS 50ML 50 ML IV SCH ×3 (04:46→20:49)
[2020-11-03 05:04] LABS: MEAN CORPUSCULAR HEMOGLOBIN 29.3 pg (27.0-33.0); MEAN CORPUSCULAR HGB CONC 33.5 g/dL (32.0-36.0); MEAN CORPUSCULAR VOLUME 87.3 fL (79-99); RED BLOOD CELL COUNT(AUTO) 3.55 MIL/uL (4.00-5.50); WHITE BLOOD COUNT (AUTO) 18.3 K/uL (4.8-10.8)
[2020-11-03 05:15] LABS: CREATININE 1.7 mg/dL (0.5-1.5); POTASSIUM 3.3 mmol/L (3.5-5.1)
[2020-11-03] MEDS ORDERED: POTASSIUM CHLORIDE 10% ELIXIR 20 MEQ/15 ML UDCUP PO PRN (05:30)
[2020-11-03] MEDS ORDERED: MAGNESIUM 2GM PREMIX 50ML 50 ML IV PRN (06:00)
[2020-11-03] MEDS ORDERED: KCL 20 MEQ ERTAB PO ONE (06:01)
[2020-11-03] MEDS ORDERED: MAGNESIUM 2GM PREMIX 50ML 50 ML IV ONE (06:02)
[2020-11-03] MEDS: INSULIN HUMULIN R 100 UNIT/ML 3ML SQ SCH ×4 (06:30→20:44)
[2020-11-03 08:00] VITALS: BP 125/54
[2020-11-03] MEDS: 0.9% NACL 250ML 250 ML IV SCH (10:44)
[2020-11-03] MEDS: VANCOMYCIN KIT 1 GM/250 ML IV.KIT IV SCH ×2 (10:44→21:00)
[2020-11-03] MEDS: FAMOTIDINE 20MG VIAL IV SCH ×2 (10:44→20:49)
[2020-11-03 11:50] VITALS: BP 142/70
[2020-11-03] MEDS: MORPHINE 4 MG SYG IV PRN (13:24)
[2020-11-03] MEDS: SODIUM HYPOCHLORITE 0.125% 473 ML SOLUTION TP SCH ×2 (15:44→21:57)
[2020-11-03] MEDS: HYDROCODONE/ACETAMINOPHEN 5/325 MG TAB PO PRN (16:23)
[2020-11-03 16:36] VITALS: BP 138/62
[2020-11-03 19:36] VITALS: BP 125/55
[2020-11-03] MEDS: KCL 20 MEQ ERTAB PO PRN (21:45)
[2020-11-03 23:53] VITALS: BP 154/75
[2020-11-04] MEDS ORDERED: VANCOMYCIN 1G/250ML KIT 250 ML IV SCH (03:00)
[2020-11-04] MEDS: HYDROCODONE/ACETAMINOPHEN 5/325 MG TAB PO PRN ×2 (03:03→09:12)
[2020-11-04 04:32] VITALS: BP 135/69
[2020-11-04] MEDS: ZOSYN 3.375GM+NS 50ML 50 ML IV SCH ×2 (04:51→20:48)
[2020-11-04] MEDS: LACTATED RINGERS 1000ML 1,000 ML IV SCH ×2 (04:57→20:00)
[2020-11-04] MEDS: INSULIN HUMULIN R 100 UNIT/ML 3ML SQ SCH ×4 (06:35→20:50)
[2020-11-04 08:00] VITALS: BP 144/71
[2020-11-04 08:17] LABS: CREATININE 2.2 mg/dL (0.5-1.5); POTASSIUM 3.7 mmol/L (3.5-5.1)
[2020-11-04] MEDS: SODIUM HYPOCHLORITE 0.125% 473 ML SOLUTION TP SCH ×2 (09:08→21:01)
[2020-11-04] MEDS: FAMOTIDINE 20MG VIAL IV SCH ×2 (09:11→20:48)
[2020-11-04 12:00] VITALS: BP 148/71
[2020-11-04 16:00] VITALS: BP 160/70
[2020-11-04] MEDS ORDERED: MORPHINE 2 MG SYG ONE (17:58)
[2020-11-04] MEDS: MORPHINE 4 MG SYG IV PRN (18:01)
[2020-11-04 19:48] VITALS: BP 169/74
[2020-11-05] VITALS (7 sets, daily range): BP systolic 151–173; BP diastolic 61–84
[2020-11-05] MEDS ORDERED: HYDRALAZINE 20MG/ML VIAL IV PRN
[2020-11-05] MEDS ORDERED: HYDRALAZINE 20MG/ML VIAL ONE (00:12)
[2020-11-05] MEDS: LACTATED RINGERS 1000ML 1,000 ML IV SCH ×3 (03:02→20:28)
[2020-11-05 05:51] LABS: BASOPHILS % (AUTO) 0.6 % (0.0-5.0); EOSINOPHILS % (AUTO) 2.1 % (0.0-8.0); LYMPHOCYTES % (AUTO) 24.2 % (21.0-51.0); MEAN CORPUSCULAR HEMOGLOBIN 29.3 pg (27.0-33.0); MEAN CORPUSCULAR HGB CONC 33.3 g/dL (32.0-36.0); MONOCYTES % (AUTO) 8.3 % (3.0-13.0); NEUTROPHILS % (AUTO) 63.7 % (40.0-77.0); PLATELET COUNT (AUTO) 488 K/uL (130-400); RED BLOOD CELL COUNT(AUTO) 3.41 MIL/uL (4.00-5.50); RED CELL DISTRIBUTION WIDTH 12.2 % (11.0-15.5)
[2020-11-05] MEDS: INSULIN HUMULIN R 100 UNIT/ML 3ML SQ SCH ×4 (05:53→21:46)
[2020-11-05 06:18] LABS: ALBUMIN 1.6 g/dL (3.5-5.0); BILIRUBIN,TOTAL 0.3 mg/dL (0.2-1.0); CREATININE 2.1 mg/dL (0.5-1.5); POTASSIUM 3.3 mmol/L (3.5-5.1); TOTAL PROTEIN, SERUM 6.7 g/dL (6.0-8.3)
[2020-11-05] MEDS ORDERED: MORPHINE 2 MG SYG ONE (09:19)
[2020-11-05] MEDS: SODIUM HYPOCHLORITE 0.125% 473 ML SOLUTION TP SCH ×2 (10:08→21:45)
[2020-11-05] MEDS: ZOSYN 3.375GM+NS 50ML 50 ML IV SCH ×2 (10:08→20:27)
[2020-11-05] MEDS: FAMOTIDINE 20MG VIAL IV SCH ×2 (10:09→20:27)
[2020-11-06 03:48] VITALS: BP 169/64
[2020-11-06 05:11] LABS: BASOPHILS % (AUTO) 0.7 % (0.0-5.0); EOSINOPHILS % (AUTO) 1.9 % (0.0-8.0); HEMATOCRIT 30.1 % (36-48); LYMPHOCYTES % (AUTO) 24.8 % (21.0-51.0); MEAN CORPUSCULAR HGB CONC 32.2 g/dL (32.0-36.0); MEAN CORPUSCULAR VOLUME 89.9 fL (79-99); MONOCYTES % (AUTO) 8.4 % (3.0-13.0); NEUTROPHILS % (AUTO) 63.4 % (40.0-77.0); PLATELET COUNT (AUTO) 514 K/uL (130-400); RED BLOOD CELL COUNT(AUTO) 3.35 MIL/uL (4.00-5.50); RED CELL DISTRIBUTION WIDTH 12.3 % (11.0-15.5); WHITE BLOOD COUNT (AUTO) 13.4 K/uL (4.8-10.8)
[2020-11-06 05:39] LABS: ALBUMIN 1.7 g/dL (3.5-5.0); BILIRUBIN,TOTAL 0.3 mg/dL (0.2-1.0); CREATININE 2.2 mg/dL (0.5-1.5); POTASSIUM 3.2 mmol/L (3.5-5.1)
[2020-11-06] MEDS: INSULIN HUMULIN R 100 UNIT/ML 3ML SQ SCH ×4 (06:10→21:00)
[2020-11-06 07:41] VITALS: BP 147/66
[2020-11-06] MEDS: ZOSYN 3.375GM+NS 50ML 50 ML IV SCH ×2 (08:51→21:05)
[2020-11-06] MEDS: FAMOTIDINE 20MG VIAL IV SCH ×2 (08:51→21:05)
[2020-11-06] MEDS: SODIUM HYPOCHLORITE 0.125% 473 ML SOLUTION TP SCH (08:52)
[2020-11-06 11:13] VITALS: BP 147/72
[2020-11-06] MEDS: LACTATED RINGERS 1000ML 1,000 ML IV SCH ×2 (12:00→21:06)
[2020-11-06] MEDS ORDERED: SODIUM HYPOCHLORITE 0.125% 473 ML SOLUTION TP SCH (14:00)
[2020-11-06 17:14] VITALS: BP 147/72
[2020-11-06] MEDS: HYDROCODONE/ACETAMINOPHEN 5/325 MG TAB PO PRN (18:02)
[2020-11-06 20:19] VITALS: BP 154/61
[2020-11-06 23:33] VITALS: BP 154/67
[2020-11-07 04:46] VITALS: BP 160/73
[2020-11-07 05:07] LABS: BASOPHILS % (AUTO) 0.5 % (0.0-5.0); EOSINOPHILS % (AUTO) 2.4 % (0.0-8.0); LYMPHOCYTES % (AUTO) 21.6 % (21.0-51.0); MEAN CORPUSCULAR HEMOGLOBIN 29.4 pg (27.0-33.0); MEAN CORPUSCULAR HGB CONC 33.2 g/dL (32.0-36.0); MEAN CORPUSCULAR VOLUME 88.6 fL (79-99); MONOCYTES % (AUTO) 7.7 % (3.0-13.0); PLATELET COUNT (AUTO) 501 K/uL (130-400); RED BLOOD CELL COUNT(AUTO) 3.16 MIL/uL (4.00-5.50); RED CELL DISTRIBUTION WIDTH 12.5 % (11.0-15.5)
[2020-11-07 05:41] LABS: ALBUMIN 1.7 g/dL (3.5-5.0); BILIRUBIN,TOTAL 0.3 mg/dL (0.2-1.0); POTASSIUM 3.3 mmol/L (3.5-5.1); TOTAL PROTEIN, SERUM 6.7 g/dL (6.0-8.3)
[2020-11-07] MEDS: INSULIN HUMULIN R 100 UNIT/ML 3ML SQ SCH ×4 (05:52→21:20)
[2020-11-07 07:51] VITALS: BP 157/74
[2020-11-07] MEDS: LACTATED RINGERS 1000ML 1,000 ML IV SCH ×3 (08:00→20:11)
[2020-11-07] MEDS ORDERED: MORPHINE 2 MG SYG ONE ×2 (08:02→22:50)
[2020-11-07] MEDS: FAMOTIDINE 20MG VIAL IV SCH ×2 (08:07→20:53)
[2020-11-07] MEDS: ZOSYN 3.375GM+NS 50ML 50 ML IV SCH (08:07)
[2020-11-07 10:57] VITALS: BP 143/80
[2020-11-07] MEDS: METRONIDAZOLE 500 MG TABLET PO SCH ×2 (12:47→17:46)
[2020-11-07] MEDS: AMOXICILLIN 500 MG CAPSULE PO SCH ×2 (12:47→17:46)
[2020-11-07 16:33] VITALS: BP 146/62
[2020-11-07 20:23] VITALS: BP 153/81
[2020-11-07] MEDS: KCL 20 MEQ ERTAB PO PRN (22:52)
[2020-11-07] MEDS ORDERED: MORPHINE 2 MG SYG IVP ONE (23:00)
[2020-11-07] MEDS ORDERED: KCL 20 MEQ ERTAB PO ONE (23:00)
[2020-11-07 23:10] VITALS: BP 146/73
[2020-11-08] MEDS: AMOXICILLIN 500 MG CAPSULE PO SCH ×2 (02:23→10:01)
[2020-11-08] MEDS: METRONIDAZOLE 500 MG TABLET PO SCH ×2 (02:23→10:01)
[2020-11-08 04:30] VITALS: BP 143/78
[2020-11-08] MEDS: INSULIN HUMULIN R 100 UNIT/ML 3ML SQ SCH ×3 (05:09→16:29)
[2020-11-08 08:00] VITALS: BP 154/67
[2020-11-08] MEDS: FAMOTIDINE 20MG VIAL IV SCH (10:01)
[2020-11-08] MEDS: KCL 20 MEQ ERTAB PO PRN ×2 (10:02→14:26)
[2020-11-08] MEDS ORDERED: ACETAMINOPHEN WITH CODEINE 1 TAB TAB PO PRN (10:30)
[2020-11-08 11:00] VITALS: BP 159/69
[2020-11-08] MEDS ORDERED: AMOX500C2 PO (12:56)
[2020-11-08] MEDS ORDERED: METR500T PO (12:56)
[2020-11-08] MEDS: LACTATED RINGERS 1000ML 1,000 ML IV SCH (14:29)
[2020-11-08 15:30] VITALS: BP 141/64
== END 2020-11-08 18:10 | disposition home or self-care (01) | DRG 603 ==
LOC: EDH 20:34 → EDHIP 20:35 → OBSVTOIN 20:35 → 3AH 11-02 00:18 → 3CH 11-08 09:59
PROVIDERS: ADMIT Hospitalist; ATTEND Hospitalist
PROC: 0Y9D0ZZ Drainage of Left Upper Leg, Open Approach (ICD-10-PCS; principal; 2020-11-06)
DX: L02.416 Cutaneous abscess of left lower limb (principal); E87.1 Hypo-osmolality and hyponatremia; N76.89 Other specified inflammation of vagina and vulva; L03.116 Cellulitis of left lower limb; F17.210 Nicotine dependence, cigarettes, uncomplicated; E87.6 Hypokalemia; K42.9 Umbilical hernia without obstruction or gangrene; E11.9 Type 2 diabetes mellitus without complications; K59.00 Constipation, unspecified; E66.9 Obesity, unspecified; Z68.34 Body mass index [BMI] 34.0-34.9, adult; Z20.822 Contact with and (suspected) exposure to COVID-19; Z79.84 Long term (current) use of oral hypoglycemic drugs; Z90.710 Acquired absence of both cervix and uterus; Z83.3 Family history of diabetes mellitus; Z80.9 Family history of malignant neoplasm, unspecified; Z82.49 Family history of ischemic heart disease and other diseases of the circulatory system
CPT/HCPCS: 36415; 72192; 80048; 80053; 80202; 81001; 82948; 83036; 83605; 83735; 84100; 84145; 85025; 85027; 85610; 85730; 86850; 86900; 86901; 87040; 87070; 87076; 87077; 87088; 87186; 87205; 87635; 93005; G0378; J0330; J0360; J0690; J1815; J2001; J2270; J2405; J2543; J2704; J3010; J3370; J3475; J3480; J3490; J7030; J7050; J7120

== ENCOUNTER → 2020-12-04 | Outpatient (CLI) | payer SELFPAY ==
[~2020-12-04] MED LIST changes: +AMOX500C2 PO; -CEPH500B PO; +LIDOCAINE HCL 4% LTA SOL 4 ML VIAL TP ONE; +METR500T PO
== END | disposition home or self-care (01) ==
LOC: WHH 10:40
PROVIDERS: ATTEND Family Medicine
DX: T81.89XD Other complications of procedures, not elsewhere classified, subsequent encounter (principal); L02.416 Cutaneous abscess of left lower limb; E11.628 Type 2 diabetes mellitus with other skin complications; S71.102D Unspecified open wound, left thigh, subsequent encounter; E11.52 Type 2 diabetes mellitus with diabetic peripheral angiopathy with gangrene; I96 Gangrene, not elsewhere classified; I10 Essential (primary) hypertension; E66.9 Obesity, unspecified; F17.210 Nicotine dependence, cigarettes, uncomplicated; Z68.36 Body mass index [BMI] 36.0-36.9, adult; Z79.84 Long term (current) use of oral hypoglycemic drugs; Z79.899 Other long term (current) drug therapy; Z90.710 Acquired absence of both cervix and uterus; Z98.890 Other specified postprocedural states; X58.XXXD Exposure to other specified factors, subsequent encounter; Y83.8 Other surgical procedures as the cause of abnormal reaction of the patient, or of later complication, without mention of misadventure at the time of the procedure
CPT/HCPCS: 97605; 99214

== ENCOUNTER → 2020-12-07 | Outpatient (CLI) | payer SELFPAY ==
[~2020-12-07] MED LIST changes: -LIDOCAINE HCL 4% LTA SOL 4 ML VIAL TP ONE
== END | disposition home or self-care (01) ==
LOC: WHH 10:51
PROVIDERS: ATTEND Family Medicine
DX: T81.89XD Other complications of procedures, not elsewhere classified, subsequent encounter (principal); L02.416 Cutaneous abscess of left lower limb; E11.628 Type 2 diabetes mellitus with other skin complications; S71.102D Unspecified open wound, left thigh, subsequent encounter; E11.52 Type 2 diabetes mellitus with diabetic peripheral angiopathy with gangrene; I96 Gangrene, not elsewhere classified; I10 Essential (primary) hypertension; E66.9 Obesity, unspecified; F17.210 Nicotine dependence, cigarettes, uncomplicated; Z68.36 Body mass index [BMI] 36.0-36.9, adult; Z79.84 Long term (current) use of oral hypoglycemic drugs; Z79.899 Other long term (current) drug therapy; Z90.710 Acquired absence of both cervix and uterus; Z98.890 Other specified postprocedural states; X58.XXXD Exposure to other specified factors, subsequent encounter; Y83.8 Other surgical procedures as the cause of abnormal reaction of the patient, or of later complication, without mention of misadventure at the time of the procedure
CPT/HCPCS: 97605; 99211

== ENCOUNTER → 2020-12-11 | Outpatient (CLI) | payer SELFPAY ==
[~2020-12-11] MED LIST changes: +LIDOCAINE HCL 4% LTA SOL 4 ML VIAL TP ONE
== END | disposition home or self-care (01) ==
LOC: WHH 10:31
PROVIDERS: ATTEND Family Medicine
DX: T81.89XD Other complications of procedures, not elsewhere classified, subsequent encounter (principal); S71.102D Unspecified open wound, left thigh, subsequent encounter; E11.628 Type 2 diabetes mellitus with other skin complications; E11.52 Type 2 diabetes mellitus with diabetic peripheral angiopathy with gangrene; I96 Gangrene, not elsewhere classified; I10 Essential (primary) hypertension; E66.9 Obesity, unspecified; F17.210 Nicotine dependence, cigarettes, uncomplicated; Z68.36 Body mass index [BMI] 36.0-36.9, adult; Z79.84 Long term (current) use of oral hypoglycemic drugs; Z79.899 Other long term (current) drug therapy; X58.XXXD Exposure to other specified factors, subsequent encounter; Y83.8 Other surgical procedures as the cause of abnormal reaction of the patient, or of later complication, without mention of misadventure at the time of the procedure
CPT/HCPCS: 99214

== ENCOUNTER → 2020-12-25 | Outpatient (CLI) | payer SELFPAY | END | disposition home or self-care (01) | LOC: WHH 10:43 | PROVIDERS: ATTEND Family Medicine | DX: T81.89XD Other complications of procedures, not elsewhere classified, subsequent encounter (principal); S71.102D Unspecified open wound, left thigh, subsequent encounter; E11.628 Type 2 diabetes mellitus with other skin complications; E11.52 Type 2 diabetes mellitus with diabetic peripheral angiopathy with gangrene; I96 Gangrene, not elsewhere classified; E66.9 Obesity, unspecified; F17.210 Nicotine dependence, cigarettes, uncomplicated; Z68.36 Body mass index [BMI] 36.0-36.9, adult; Z79.84 Long term (current) use of oral hypoglycemic drugs; Z79.899 Other long term (current) drug therapy; X58.XXXD Exposure to other specified factors, subsequent encounter; Y83.8 Other surgical procedures as the cause of abnormal reaction of the patient, or of later complication, without mention of misadventure at the time of the procedure | CPT/HCPCS: 11042 ==

== ENCOUNTER → 2021-01-01 | Outpatient (CLI) | payer SELFPAY ==
[~2021-01-01] MED LIST changes: -LIDOCAINE HCL 4% LTA SOL 4 ML VIAL TP ONE
== END | disposition home or self-care (01) ==
LOC: WHH 10:16
PROVIDERS: ATTEND Family Medicine
DX: T81.89XD Other complications of procedures, not elsewhere classified, subsequent encounter (principal); S71.102D Unspecified open wound, left thigh, subsequent encounter; E11.628 Type 2 diabetes mellitus with other skin complications; E11.52 Type 2 diabetes mellitus with diabetic peripheral angiopathy with gangrene; I96 Gangrene, not elsewhere classified; E66.9 Obesity, unspecified; F17.210 Nicotine dependence, cigarettes, uncomplicated; Z68.36 Body mass index [BMI] 36.0-36.9, adult; Z79.84 Long term (current) use of oral hypoglycemic drugs; Z79.899 Other long term (current) drug therapy; X58.XXXD Exposure to other specified factors, subsequent encounter; Y83.8 Other surgical procedures as the cause of abnormal reaction of the patient, or of later complication, without mention of misadventure at the time of the procedure
CPT/HCPCS: 99214

== ENCOUNTER 2022-03-12 16:01 | Emergency (ER) | payer OTHER ==
[~2022-03-12] VITALS: Ht 165.1 cm; Wt 102.1 kg
[2022-03-12 16:34] VITALS: BP 161/78
[2022-03-12 17:13] LABS: BASOPHILS % (AUTO) 0.6 % (0.0-5.0); EOSINOPHILS % (AUTO) 1.5 % (0.0-8.0); HEMATOCRIT 43.4 % (36-48); LYMPHOCYTES % (AUTO) 29.3 % (21.0-51.0); MEAN CORPUSCULAR HEMOGLOBIN 29.2 pg (27.0-33.0); MEAN CORPUSCULAR HGB CONC 33.2 g/dL (32.0-36.0); MONOCYTES % (AUTO) 6.3 % (3.0-13.0); NEUTROPHILS % (AUTO) 61.9 % (40.0-77.0); PLATELET COUNT (AUTO) 292 K/uL (130-400); RED BLOOD CELL COUNT(AUTO) 4.93 MIL/uL (4.00-5.50); RED CELL DISTRIBUTION WIDTH 12.4 % (11.0-15.5); WHITE BLOOD COUNT (AUTO) 13.9 K/uL (4.8-10.8)
[2022-03-12 17:18] LABS: APPEARANCE,URINE CLEAR (CLEAR); BILIRUBIN,URINE NEGATIVE (NEGATIVE); COLOR,URINE LIGHT-YELLOW (YELLOW); GLUCOSE, URINE (UA) >=1000 mg/dL (NEGATIVE); KETONES,URINE NEGATIVE (NEGATIVE); LEUKOCYTE ESTERASE ,URINE 250 Leu/uL (NEGATIVE); NITRATE,URINE NEGATIVE (NEGATIVE); OCCULT BLOOD,URINE MODERATE (NEGATIVE); PROTEIN,URINE 300 mg/dL (NEGATIVE); UROBILINOGEN,URINE 0.2 mg/dL (0.2-1.0)
[2022-03-12 17:20] LABS: BACTERIA,URINE FEW /HPF (None Seen); SQUAMOUS EPITHELIAL CELL,UR RARE /HPF (0-2); WBC,URINE 51-100 /HPF (0-1)
[2022-03-12 17:27] LABS: CREATININE 1.3 mg/dL (0.5-1.5); POTASSIUM 4.1 mmol/L (3.5-5.1)
[2022-03-12 17:32] LABS: ALBUMIN 3.2 g/dL (3.5-5.0); TOTAL PROTEIN, SERUM 8.4 g/dL (6.0-8.3)
[2022-03-12] MEDS ORDERED: CLIN-141 PO (18:30)
[2022-03-12] MEDS ORDERED: ACET-66 PO (18:30)
[2022-03-12] MEDS ORDERED: CEFTRIAXONE 1G VIAL IVP ONE (19:00)
[2022-03-12] MEDS ORDERED: 0.9% NACL 500ML IV.SOLN 500 ML IV ONE (19:00)
[2022-03-12] MEDS ORDERED: MORPHINE 2 MG SYG IVP ONE (19:00)
[2022-03-12] MEDS ORDERED: ONDANSETRON 4MG INJ IVP ONE (19:00)
[2022-03-12] MEDS ORDERED: INSULIN HUMULIN R 100 UNIT/ML 3ML SQ ONE ×2 (19:00)
== END 2022-03-12 19:14 | disposition home or self-care (01) ==
LOC: EDH 16:01
DX: L03.113 Cellulitis of right upper limb (principal); E11.65 Type 2 diabetes mellitus with hyperglycemia; Z90.710 Acquired absence of both cervix and uterus
CPT/HCPCS: 99284; 96374; 96375; 96361; 80053; 85025; 87088; 81001; 36415; 73100; 96372; J1815; J7040; J0696; J2405

== ENCOUNTER → 2025-02-07 | Outpatient (CLI) | payer SELFPAY ==
[~2025-02-07] MED LIST changes: +AMOX1TAB16 PO; -AMOX500C2 PO; +ATOR40TA71 PO; +FURO40TA5 PO; +Folic Acid/Vitamin B Comp W-C PO; -GLYB2.5T6 PO; -INSU3INS3 SQ; +LISI5TAB21 PO; +METO-408 PO; -METR500T PO; +SPIR25TA6 PO; -TRAM50TA4 PO
== END | disposition home or self-care (01) ==
LOC: WHH 09:54
PROVIDERS: ATTEND Family Medicine
DX: E11.621 Type 2 diabetes mellitus with foot ulcer (principal); L97.421 Non-pressure chronic ulcer of left heel and midfoot limited to breakdown of skin; E66.9 Obesity, unspecified; I11.0 Hypertensive heart disease with heart failure; I50.33 Acute on chronic diastolic (congestive) heart failure; E78.5 Hyperlipidemia, unspecified; F17.210 Nicotine dependence, cigarettes, uncomplicated; Z90.710 Acquired absence of both cervix and uterus; Z68.32 Body mass index [BMI] 32.0-32.9, adult
CPT/HCPCS: 99215; A6248; A4450

== ENCOUNTER → 2025-02-14 | Outpatient (CLI) | payer SELFPAY ==
[~2025-02-14] MED LIST changes: -AMOX1TAB16 PO; -ATOR40TA71 PO; -FURO40TA5 PO; -Folic Acid/Vitamin B Comp W-C PO; +LIDOCAINE HCL 4% LTA SOL 4 ML VIAL TP ONE; -LISI5TAB21 PO; -METF-444 PO; -METO-408 PO; -SPIR25TA6 PO
== END | disposition home or self-care (01) ==
LOC: WHH 08:00
PROVIDERS: ATTEND Family Medicine
DX: E11.621 Type 2 diabetes mellitus with foot ulcer (principal); L97.421 Non-pressure chronic ulcer of left heel and midfoot limited to breakdown of skin; E66.9 Obesity, unspecified; I11.0 Hypertensive heart disease with heart failure; I50.33 Acute on chronic diastolic (congestive) heart failure; E78.5 Hyperlipidemia, unspecified; F17.210 Nicotine dependence, cigarettes, uncomplicated; Z90.710 Acquired absence of both cervix and uterus; Z68.32 Body mass index [BMI] 32.0-32.9, adult
CPT/HCPCS: 99214; A6248

== ENCOUNTER → 2025-02-21 | Outpatient (CLI) | payer SELFPAY ==
[~2025-02-21] MED LIST changes: +AMOX1TAB16 PO; +ATOR40TA71 PO; +FURO40TA5 PO; +Folic Acid/Vitamin B Comp W-C PO; +HONEY 1 APPL/ML TUBE TP ONE; +LISI5TAB21 PO; +METF-444 PO; +METO-408 PO; +SPIR25TA6 PO
== END | disposition home or self-care (01) ==
LOC: WHH 08:56
PROVIDERS: ATTEND Family Medicine
DX: E11.621 Type 2 diabetes mellitus with foot ulcer (principal); L97.422 Non-pressure chronic ulcer of left heel and midfoot with fat layer exposed; E66.9 Obesity, unspecified; I11.0 Hypertensive heart disease with heart failure; I50.33 Acute on chronic diastolic (congestive) heart failure; E78.5 Hyperlipidemia, unspecified; F17.210 Nicotine dependence, cigarettes, uncomplicated; Z90.710 Acquired absence of both cervix and uterus; Z68.32 Body mass index [BMI] 32.0-32.9, adult
CPT/HCPCS: 11042

== ENCOUNTER → 2025-02-28 | Outpatient (CLI) | payer SELFPAY ==
[~2025-02-28] MED LIST changes: -HONEY 1 APPL/ML TUBE TP ONE; -LIDOCAINE HCL 4% LTA SOL 4 ML VIAL TP ONE
== END | disposition home or self-care (01) ==
LOC: WHH 08:34
PROVIDERS: ATTEND Family Medicine
DX: E11.621 Type 2 diabetes mellitus with foot ulcer (principal); L97.421 Non-pressure chronic ulcer of left heel and midfoot limited to breakdown of skin; E66.9 Obesity, unspecified; I11.0 Hypertensive heart disease with heart failure; I50.33 Acute on chronic diastolic (congestive) heart failure; E78.5 Hyperlipidemia, unspecified; F17.210 Nicotine dependence, cigarettes, uncomplicated; Z90.710 Acquired absence of both cervix and uterus; Z68.32 Body mass index [BMI] 32.0-32.9, adult
CPT/HCPCS: 99214

== ENCOUNTER → 2025-03-07 | Outpatient (CLI) | payer SELFPAY ==
[~2025-03-07] MED LIST changes: +LIDOCAINE HCL 4% LTA SOL 4 ML VIAL TP ONE
== END | disposition home or self-care (01) ==
LOC: WHH 08:41
PROVIDERS: ATTEND Family Medicine
DX: E11.621 Type 2 diabetes mellitus with foot ulcer (principal); L97.421 Non-pressure chronic ulcer of left heel and midfoot limited to breakdown of skin; E66.9 Obesity, unspecified; I11.0 Hypertensive heart disease with heart failure; I50.33 Acute on chronic diastolic (congestive) heart failure; E78.5 Hyperlipidemia, unspecified; F17.210 Nicotine dependence, cigarettes, uncomplicated; Z90.710 Acquired absence of both cervix and uterus; Z68.32 Body mass index [BMI] 32.0-32.9, adult
CPT/HCPCS: 99214